=== PATIENT | female | born 1965 | race Caucasian/White ===

== ENCOUNTER → 2020-12-07 | Outpatient (CLI) | payer BC ==
--- NOTE | 2020-12-08 02:02 | REP ---
INDICATION: CONTUSION COMPARISON: None. TECHNIQUE: AP, lateral, bilateral oblique views of the right elbow. FINDINGS: Lateral view best suggests posterior soft tissue injury. No foreign body. The osseous structures and joint spaces appear intact and without acute fracture or dislocation. No effusion. IMPRESSION: Soft tissue injury suggested. No acute fracture or dislocation. <Electronically signed by Blade Schofield > 12/08/20 [id number]
== END ==
LOC: M WUC 13:34
PROVIDERS: ATTEND Physician Assistant
DX: S40.021A Contusion of right upper arm, initial encounter (principal); X58.XXXA Exposure to other specified factors, initial encounter; Y92.9 Unspecified place or not applicable; Y99.9 Unspecified external cause status